=== PATIENT | male | born 1975 | race Caucasian/White ===

== ENCOUNTER 2016-10-23 21:04 | Emergency (ER) | payer OTHER ==
[2016-10-23 21:26] VITALS: BP 120/84
--- NOTE | 2016-10-23 22:10 | UC ---
Respiratory Complaint HPI - HPI Summary HPI Summary: The patient comes in today for: 1. Body aches, cough: Onset: 2 days ago. Palliative/provocative: Dayquil with questionable help. Nothing helps. Quality: Ache Region/radiation: Bilateral lower back and legs. Severity:7/10 though he appears to be more like 4/10 Time: Constant aches, but cough lasts a few seconds. Associated symptoms: Fevers: no temperature taken. Rhinitis: Green material Cough: Green material. Chest pain: None at this time. Dyspnea: None. * - History of Current Complaint Chief Complaint: UCRespiratory Stated Complaint: URI Time Seen by Provider: 10/23/16 22:05 Hx Obtained From: Patient - Allergies/Home Medications Allergies/Adverse Reactions: Allergies Allergy/AdvReac Type Severity Reaction Status Date / Time No Known Allergies Allergy Verified 02/17/16 18:13 Home Medications: Home Medications Dextromethorphan-Phenylephrine [Daytime Cold & Flu Relief 10-5-325 mg] 1 cap PO 10/23/16 [History] PMH/Surg Hx/FS Hx/Imm Hx Previously Healthy: Yes Endocrine History Of: Denies: Diabetes, Thyroid Disease, Hyperthyroidism, Hypothyroidism, Dyslipidemia Cardiovascular History Of: Denies: Cardiac Disorders, Hypertension, Pacemaker/ICD, Myocardial Infarction , Congestive Heart Failure, Atrial Fibrillation, Deep Vein Thrombosis, Bleeding Disorders Respiratory History Of: Denies: COPD, Asthma, Bronchitis, Pneumonia, Pulmonary Embolism GI/ History Of: Denies: Gastroesophageal Reflux, Ulcer, Gastrointestinal Bleed, Gall Bladder Disease, Kidney Stones, Diverticulitis, Renal Disease, Urosepsis Neurological History Of: Denies: TIA, CVA, Dementia, Seizures, Migraine Psychological History Of: Denies: Anxiety, Depression, Bipolar Disorder, Schizophrenia, Post Traumatic Stress Disorder Cancer History Of: Denies: Lung Cancer, Colorectal Cancer, Breast Cancer, Prostate Cancer, Cervical Cancer Other History Of: Negative For: HIV, Hepatitis B, Hepatitis C, Anticoagulant Therapy - Surgical History Surgical History: Yes Surgery Procedure, Year, and Place: vastectomy - Family History Known Family History: Negative: Cardiac Disease, Hypertension - Social History Occupation: Employed Full-time Lives: With Family Alcohol Use: None Substance Use Type: None Smoking Status (MU): Light Every Day Tobacco Smoker Type: Cigarettes Amount Used/How Often: 1/3 pack a day Length of Time of Smoking/Using Tobacco: 15 years Review of Systems Constitutional: Negative Skin: Negative Eyes: Negative ENT: Nasal Discharge Respiratory: Cough Cardiovascular: Negative Gastrointestinal: Negative Genitourinary: Negative All Other Systems Reviewed And Are Negative: Yes Physical Exam Triage Information Reviewed: Yes Appearance: Well-Appearing, Well-Nourished Vital Signs: Initial Vital Signs Temp 96.1 F 10/23/16 21:22 Pulse 97 10/23/16 21:22 Resp 18 10/23/16 21:22 BP 120/84 10/23/16 21:22 Pulse Ox 98 10/23/16 21:22 Vital Signs Reviewed: Yes Eyes: Positive: Conjunctiva Clear. Negative: Discharge ENT: Positive: Hearing grossly normal, Other: - Tenderness to palpation of the frontal and maxillary sinuses. Negative: Pharyngeal erythema, Nasal congestion , TM bulging, TM dull, TM red, Tonsillar swelling, Tonsillar exudate Dental: Negative: Gross Decay/Caries @, Dental Fracture @ Neck: Positive: Supple, Nontender, No Lymphadenopathy. Negative: Nuchal Rigidity Respiratory: Positive: Lungs clear, No respiratory distress, No accessory muscle use. Negative: Crackles, Wheezing Cardiovascular: Positive: RRR, No Murmur Abdomen Description: Positive: Nontender, No Organomegaly, Soft. Negative: Distended, Guarding Musculoskeletal: Positive: Strength Intact, ROM Intact Neurological: Positive: Alert, Muscle Tone Normal Psychological: Positive: Age Appropriate Behavior, Consolable Skin: Negative: rashes, breakdown UC Diagnostic Evaluation - Laboratory O2 Sat by Pulse Oximetry: 98 Respiratory Course/Dx - Differential Dx/Diagnosis Provider Diagnoses: Sinusitis. Bronchitis. Viral syndrome. Discharge - Discharge Plan Condition: Stable Disposition: HOME Patient Education Materials: Sinusitis (ED), Acute Bronchitis (ED), Viral Syndrome (ED) Referrals: No Primary Care Phys,NOPCP [Primary Care Provider] - 1 Week (Please see your primary care provider in a week to see how well you are doing. If you don't have a primary care provider, please call the physician referral phone line to help you get one. If you can't get in timely, you can see us until you do. If you get worse, please go to the local ER.) [facility] [place] [place]]
[2016-10-23] MEDS ORDERED: Naproxen TAB* 250 MG PO ONE (22:14)
[2016-10-23] MEDS ORDERED: Amoxicillin/Clavulanate TAB* 875 MG PO ONE (22:14)
== END 2016-10-23 22:25 | disposition home or self-care (01) ==
LOC: UCEAST 21:04
DX: J32.9 Chronic sinusitis, unspecified (principal); J40 Bronchitis, not specified as acute or chronic; B34.9 Viral infection, unspecified; F17.210 Nicotine dependence, cigarettes, uncomplicated
CPT/HCPCS: 99212; A9270-GY; G0463

== ENCOUNTER 2017-11-06 14:38 | Emergency (ER) | payer OTHER ==
[2017-11-06 15:04] VITALS: BP 116/77
--- NOTE | 2017-11-06 15:27 | RAD ---
HISTORY: Right knee twisting injury COMPARISONS: None VIEWS: 4, Frontal, lateral, axial, and oblique views of the right knee FINDINGS: BONE DENSITY: Normal. BONES: There is no displaced fracture. There are well-corticated bone fragments of the anterior tibial tubercle. JOINTS: There is no arthropathy. There is no suprapatellar joint effusion or lipohemarthrosis. ALIGNMENT: There is no dislocation. SOFT TISSUES: Unremarkable. OTHER FINDINGS: None. IMPRESSION: NO ACUTE OSSEOUS INJURY. 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 IF SYMPTOMS PERSIST, RECOMMEND REPEAT IMAGING.
--- NOTE | 2017-11-06 15:44 | UC ---
Knee Pain HPI - HPI Summary HPI Summary: About 1.5 weeks ago pt was walking in his driveway and R knee twisted, since then he has had medial pain. At first was swollen, now swelling improved. Continues to have pain with weight bearing, occasionally has the sensation that his joint is "coming apart" and has sharp pain with this. Does not feel comfortable pivoting or changing directions while walking. - History of Current Complaint Hx Obtained From: Patient Onset/Duration: Sudden Onset Severity Initially: Moderate Severity Currently: Mild Pain Intensity: 4 Character: Dull, Aching Aggravating Factor(s): Movement, Weight Bearing, Prolonged Standing Alleviating Factor(s): Rest Associated Signs And Symptoms: Positive: Swelling Able to Bear Weight: Yes <Eunice Mcclendon - Last Filed: 11/06/17 15:39> <Shannan Mercedes - Last Filed: 11/06/17 16:39> - History of Current Complaint Chief Complaint: UCLowerExtremity Stated Complaint: KNEE INJURY Time Seen by Provider: 11/06/17 15:17 - Allergies/Home Medications Allergies/Adverse Reactions: Allergies Allergy/AdvReac Type Severity Reaction Status Date / Time No Known Allergies Allergy Verified 11/06/17 15:04 Home Medications: Home Medications Penicillin VK TAB* [Penicillin VK 250 mg Tab*] 500 mg PO TID 11/06/17 [History Confirmed 11/06/17] PMH/Surg Hx/FS Hx/Imm Hx Previously Healthy: Yes Other History Of: Negative For: HIV, Hepatitis B, Hepatitis C, Anticoagulant Therapy - Surgical History Surgical History: Yes Surgery Procedure, Year, and Place: vastectomy - Family History Known Family History: Negative: Cardiac Disease, Hypertension - Social History Occupation: Unemployed Lives: With Family Alcohol Use: None Substance Use Type: None Smoking Status (MU): Light Every Day Tobacco Smoker Type: Cigarettes Amount Used/How Often: 1 pack every 4 days Length of Time of Smoking/Using Tobacco: 15 years Have You Smoked in the Last Year: Yes <Eunice Mcclendon - Last Filed: 11/06/17 15:39> Review of Systems Constitutional: Negative Skin: Negative Eyes: Negative ENT: Negative Respiratory: Negative Cardiovascular: Negative Gastrointestinal: Negative Genitourinary: Negative Motor: Negative Neurovascular: Negative Musculoskeletal: Arthralgia, Decreased ROM Neurological: Negative Psychological: Negative Is Patient Immunocompromised?: No All Other Systems Reviewed And Are Negative: Yes <Eunice Mcclendon - Last Filed: 11/06/17 15:39> Physical Exam Triage Information Reviewed: Yes Appearance: Well-Appearing, Well-Nourished Vital Signs: Initial Vital Signs Temp 97.8 F 11/06/17 15:00 Pulse 86 11/06/17 15:00 Resp 16 11/06/17 15:00 BP 116/77 11/06/17 15:00 Pulse Ox 99 11/06/17 15:00 Vital Signs Reviewed: Yes Eye Exam: Normal Eyes: Positive: Conjunctiva Clear ENT Exam: Normal ENT: Positive: Normal ENT inspection, Hearing grossly normal, Pharynx normal, TMs normal Respiratory Exam: Normal Respiratory: Positive: Chest non-tender, Lungs clear, Normal breath sounds, No respiratory distress, No accessory muscle use Cardiovascular Exam: Normal Cardiovascular: Positive: RRR, No Murmur Musculoskeletal Exam: Other - Pain in R knee, medial joint line; possible laxity with anterior drawer? Musculoskeletal: Positive: Strength Intact, ROM Intact Neurological Exam: Normal Neurological: Positive: Alert Psychological Exam: Normal Skin Exam: Normal <Eunice Mcclendon - Last Filed: 11/06/17 15:39> Vital Signs: Initial Vital Signs Temp 97.8 F 11/06/17 15:00 Pulse 86 11/06/17 15:00 Resp 16 11/06/17 15:00 BP 116/77 11/06/17 15:00 Pulse Ox 99 11/06/17 15:00 <Shannan Mercedes - Last Filed: 11/06/17 16:39> Diagnostics - Radiology No standard instances Xray Interpretation: No Acute Changes Radiology Interpretation Completed By: Radiologist <Eunice Mcclendon - Last Filed: 11/06/17 15:39> Knee Pain Course/Dx - Differential Dx/Diagnosis Provider Diagnoses: R knee sprain <Eunice Mcclendon - Last Filed: 11/06/17 15:39> Discharge <Eunice Mcclendon - Last Filed: 11/06/17 15:39> <Shannan Mercedes - Last Filed: 11/06/17 16:39> - Discharge Plan Condition: Stable Disposition: HOME Patient Education Materials: Knee Sprain (ED) Referrals: Chiara Phan MD [Medical Doctor] - Additional Instructions: As we discussed, your symptoms are concerning for internal ligament damage. Please see an orthopedist to discuss the possible need for further imaging. In the mean time, please try not to bear weight without the knee immobilizer. If you twist your knee again without support you could turn a small injury into a large one. You can take ibuprofen or naproxen as needed for pain. Attestation Statement User Type: Provider - I was available for consult. This patient was seen by the advanced practice provider. The patient was not presented to, seen by, or examined by me.-Celso <Shannan Mercedes - Last Filed: 11/06/17 16:39>
== END 2017-11-06 15:48 | disposition home or self-care (01) ==
LOC: UCEAST 14:38
DX: S83.91XA Sprain of unspecified site of right knee, initial encounter (principal); X50.1XXA Overexertion from prolonged static or awkward postures, initial encounter; Y93.01 Activity, walking, marching and hiking; Y92.412 Parkway as the place of occurrence of the external cause; F17.210 Nicotine dependence, cigarettes, uncomplicated
CPT/HCPCS: 99212; G0463

== ENCOUNTER 2018-08-15 14:59 | Emergency (ER) | payer OTHER ==
[2018-08-15 17:05] VITALS: BP 121/86
[2018-08-15] MEDS ORDERED: Ondansetron ODT TAB* 4 MG PO ONE (18:12)
--- NOTE | 2018-08-15 18:26 | UC ---
Abdominal Pain Male HPI - HPI Summary HPI Summary: Onset last night of nausea/vomiting and watery stools. Reports fever 101 last night. Has not been able to eat or drink much today due to the nausea. Is also complaining of a mild headache. - History of Current Complaint Chief Complaint: UCGI Stated Complaint: VOMITING Time Seen by Provider: 08/15/18 17:25 Hx Obtained From: Patient Onset/Duration: Sudden Onset, Lasting Days - 1 DAY, Still Present Timing: Constant Severity Initially: Moderate Severity Currently: Moderate Pain Intensity: 5 Pain Scale Used: 0-10 Numeric Location: Diffuse Radiates: No Character: Cramping, Sharp Aggravating Factor(s): Food Alleviating Factor(s): Nothing Associated Signs And Symptoms: Positive: Fever, Decreased Appetite, Nausea, Vomiting, Diarrhea. Negative: Diaphoresis, Urinary Symptoms - Allergies/Home Medications Allergies/Adverse Reactions: Allergies Allergy/AdvReac Type Severity Reaction Status Date / Time No Known Allergies Allergy Verified 08/15/18 17:05 Home Medications: Home Medications Acetaminophen 1,300 mg PO 08/15/18 [History] PMH/Surg Hx/FS Hx/Imm Hx Previously Healthy: Yes Other History Of: Negative For: HIV, Hepatitis B, Hepatitis C, Anticoagulant Therapy - Surgical History Surgical History: Yes Surgery Procedure, Year, and Place: vastectomy - Family History Known Family History: Negative: Cardiac Disease, Hypertension - Social History Alcohol Use: None Substance Use Type: None Smoking Status (MU): Light Every Day Tobacco Smoker Type: Cigarettes Amount Used/How Often: 1 pack every 4 days Length of Time of Smoking/Using Tobacco: 15 years Have You Smoked in the Last Year: Yes Review of Systems All Other Systems Reviewed And Are Negative: Yes Constitutional: Positive: Fever Respiratory: Positive: Negative Cardiovascular: Positive: Negative Gastrointestinal: Positive: Abdominal Pain, Vomiting, Diarrhea, Nausea Genitourinary: Positive: Negative Physical Exam Triage Information Reviewed: Yes Appearance: Well-Appearing, No Pain Distress, Well-Nourished Vital Signs: Initial Vital Signs Temp 97.4 F 08/15/18 17:02 Pulse 99 08/15/18 17:02 Resp 18 08/15/18 17:02 BP 121/86 08/15/18 17:02 Pulse Ox 98 08/15/18 17:02 Vital Signs Reviewed: Yes Eyes: Positive: Conjunctiva Clear ENT: Positive: Hearing grossly normal, Pharynx normal Neck: Positive: Supple Respiratory Exam: Normal Cardiovascular Exam: Normal Abdomen Description: Positive: Soft, Other: - DIFFUSELY TENDER BUT WORSE UPPER ABDOMEN. NO REBOUND OR RIGIDITY. Negative: CVA Tenderness (R), CVA Tenderness ( L), Distended, Guarding Abd Pain Male Course/Dx - Differential Dx/Clinical Impression Provider Diagnosis: Gastroenteritis Discharge - Sign-Out/Discharge Documenting (check all that apply): Patient Departure All imaging exams completed and their final reports reviewed: No Studies - Discharge Plan Condition: Stable Disposition: HOME Prescriptions: Ondansetron ODT TAB* [Zofran Odt TAB*] 4 mg PO Q6H PRN #20 tab.odt PRN Reason: Nausea/Vomiting Patient Education Materials: Gastroenteritis (ED) Forms: *Work Release Referrals: [facility] [Outside] - If Needed Additional Instructions: GASTROENTERITIS: You have gastroenteritis ("intestinal flu"). This disease is usually caused by a virus. There is no specific treatment. The disease will end by itself. For now, the main danger is dehydration. Give clear liquids. Examples include Pedialyte, Gatorade, clear broth, juices, flat sodas, and jello water. Medications may be prescribed by the physician for special cases. Once tolerated, the clear liquid diet may be supplemented with rice, cereal, toast, applesauce, or bananas. Call the physician or go to the hospital if vomiting increases or blood appears in the bowel movement or vomitus; if you fail to improve, or if signs of dehydration occur (tongue and mouth become dry, lethargy). ENSURE ADEQUATE HYDRATION. CLEAR LIQUIDS, BLAND DIET. AVOID CAFFEINE, DAIRY, GREASY, SPICY FOODS. ONCE YOU ARE TOLERATING CLEAR LIQUIDS YOU CAN ADVANCE TO SIMPLE, BLAND FOODS. CALL THE NUMBER BELOW FOR ASSISTANCE IN ESTABLISHING WITH A PCP An additional resource available to assist in finding the appropriate physician for your health care needs is the [facility] ([facility]). You may contact them by calling [phone]. - Billing Disposition and Condition Condition: STABLE Disposition: Home
== END 2018-08-15 18:25 | disposition home or self-care (01) ==
LOC: UCEAST 14:59
DX: K52.9 Noninfective gastroenteritis and colitis, unspecified (principal); F17.210 Nicotine dependence, cigarettes, uncomplicated
CPT/HCPCS: 99212; A9270-GY; G0463

== ENCOUNTER 2018-08-18 17:45 | Emergency (ER) | payer OTHER ==
[2018-08-18] MEDS ORDERED: Buprenorp/Nalox 8-2 MG FILM 1 EACH SL FILM ONE (18:20)
--- NOTE | 2018-08-18 18:28 | ED ---
Complex/Multi-Sys Presentation - HPI Summary HPI Summary: A 42 y/o male brought in by [facility] ambulance presents to [facility] with a chief complaint of heroine withdrawal symptoms on 08/18/18. The patient reports residing at [facility] where he has been sober for two days. He states that he forgot to bring his suboxone from home and has not had food in two days. He usually would take 1 suboxone per day. He reports N/V, abd pain, back pain, lightheadedness and weakness. He rates his pain as 5/10. - History Of Current Complaint Chief Complaint: EDGeneral Time Seen by Provider: 08/18/18 17:53 Hx Obtained From: Patient, EMS Onset/Duration: Sudden Onset, Lasting Hours, Still Present Timing: Constant Severity Currently: Moderate Severity Initially: Moderate Associated Signs And Symptoms: Positive: Weakness, Headache, Nausea, Vomiting, Abdominal Pain, Back Pain - Allergies/Home Medications Allergies/Adverse Reactions: Allergies Allergy/AdvReac Type Severity Reaction Status Date / Time No Known Allergies Allergy Verified 08/15/18 17:05 Home Medications: Home Medications Buprenorp/Nalox 8-2 MG FILM [Suboxone 8 mg-2 mg Sl Film] 1 film SL DAILY [History Confirmed 08/18/18] PMH/Surg Hx/FS Hx/Imm Hx Endocrine/Hematology History: Denies: Hx Anticoagulant Therapy, Hx Diabetes, Hx Thyroid Disease Cardiovascular History: Denies: Hx Congestive Heart Failure, Hx Deep Vein Thrombosis, Hx Hypertension , Hx Myocardial Infarction, Hx Pacemaker/ICD Respiratory History: Denies: Hx Asthma, Hx Chronic Obstructive Pulmonary Disease (COPD), Hx Lung Cancer, Hx Pneumonia, Hx Pulmonary Embolism GI History: Denies: Hx Gall Bladder Disease, Hx Gastrointestinal Bleed, Hx Ulcer, Hx Urosepsis History: Denies: Hx Kidney Stones, Hx Renal Disease Neurological History: Denies: Hx Dementia, Hx Migraine, Hx Seizures, Hx Transient Ischemic Attacks (TIA) Psychiatric History: Denies: Hx Anxiety, Hx Depression, Hx Schizophrenia, Hx Bipolar Disorder - Surgical History Surgery Procedure, Year, and Place: vastectomy Infectious Disease History: No Infectious Disease History: Denies: Hx Hepatitis, Hx Human Immunodeficiency Virus (HIV), History Other Infectious Disease, Traveled Outside the [place] in Last 30 Days - Family History Known Family History: Negative: Cardiac Disease, Hypertension - Social History Alcohol Use: None Substance Use Type: Reports: None Substance Use Comment - Amount & Last Used: recovering heroin user Smoking Status (MU): Light Every Day Tobacco Smoker Type: Cigarettes Amount Used/How Often: 1 pack every 4 days Length of Time of Smoking/Using Tobacco: 15 years Have You Smoked in the Last Year: Yes Review of Systems Positive: Abdominal Pain, Vomiting, Nausea Positive: Myalgia - back pain Neurological: Other - Positive: lightheadedness Positive: Weakness All Other Systems Reviewed And Are Negative: Yes Physical Exam - Summary Physical Exam Summary: Appearance: The patient is well-nourished in no acute distress and in no acute pain. Skin: The patient is mildly diaphoretic. HEENT: The head is normocephalic and atraumatic. The pupils are 4-5 mm. The conjunctivae are clear and without drainage. Nares are patent and without drainage. Mouth reveals moist mucous membranes and the throat is without erythema and exudate. The external ears are intact. The ear canals are patent and without drainage. The tympanic membranes are intact. Neck: The neck is supple with full range of motion and non-tender. There are no carotid bruits. There is no neck vein distension. Respiratory: Chest is non-tender. Lungs are clear to auscultation and breath sounds are symmetrical and equal. Cardiovascular: Heart is regular rate and rhythm. There is no murmur or rub auscultated. There is no peripheral edema and pulses are symmetrical and equal. Abdomen: The abdomen is soft and non-tender. There are normal bowel sounds heard in all four quadrants and there is no organomegaly palpated. Musculoskeletal: There is no back tenderness noted. Extremities are non-tender with full range of motion. There is good capillary refill. There is no peripheral edema or calf tenderness elicited. Neurological: Patient is alert and oriented to person, place and time. The patient has symmetrical motor strength in all four extremities. Cranial nerves are grossly intact. Deep tendon reflexes are symmetrical and equal in all four extremities. Psychiatric: The patient has an appropriate affect and does not exhibit any anxiety or depression. Triage Information Reviewed: Yes Vital Signs On Initial Exam: Initial Vitals Temp Pulse Resp BP Pulse Ox 99.4 F 93 22 131/86 99 08/18/18 17:49 08/18/18 17:49 08/18/18 17:49 08/18/18 17:49 08/18/18 17:49 Vital Signs Reviewed: Yes Diagnostics - Vital Signs Vital Signs Temp Pulse Resp BP Pulse Ox 08/18/18 18:13 96 20 135/89 98 08/18/18 17:49 99.4 F 93 22 131/86 99 - Laboratory Lab Statement: Any lab studies that have been ordered have been reviewed, and results considered in the medical decision making process. Re-Evaluation - Re-Evaluation First Eval Re-Evaluation Time: 20:05 Change: Improved Comment: Pt ready for discharge. Complex Multi-Symp Course/Dx Course Of Treatment: Mr. Nestor Navarro presented to the emergency department with a COWS of 17. He apparently is court mandated to care at [facility] which was outpatient until a couple days ago. He relapsed to heroin and was made inpatient. Gissel Churchill wrote a prescription for him for Suboxone for 7 days which he filled yesterday. When he went to inpatient he did not think he needed to bring his Suboxone with him. They cannot write him another prescription for 7 days. He was nontoxic in appearance here and his vitals are stable. He was given Suboxone felt much improved. His brought in his prescription Suboxone and he is going to take that back to [facility] with him. - Diagnoses Provider Diagnoses: Opiate withdrawal Discharge - Sign-Out/Discharge Documenting (check all that apply): Patient Departure - DC - Discharge Plan Condition: Stable Disposition: HOME Patient Education Materials: Opioid Withdrawal (ED) Referrals: Maira Churchill, SATURATOR OPERATOR [Nurse Practitioner] - (2-3 days) Additional Instructions: Follow up with Maira Churchill at [facility]. Return to the ED if you experience any new or worsening symptoms. - Billing Disposition and Condition Condition: STABLE Disposition: Home - Attestation Statements Document Initiated by Doniibe: Yes Documenting Scribe: Jamie Lacey Provider For Whom Isaak is Documenting (Include Credential): Jigar Cadena MD Scribe Attestation: I, Jamie Lacey, scribed for Jigar Cadena MD on 08/18/18 at 2049. Scribe Documentation Reviewed: Yes Provider Attestation: The documentation as recorded by the Jamie mason accurately reflects the service I personally performed and the decisions made by me, Jigar Cadena MD Status of Scribe Document: Viewed
[2018-08-18] MEDS ORDERED: Ondansetron ODT TAB* 4 MG PO ONE (18:51)
[2018-08-18 20:27] VITALS: BP 126/93
== END 2018-08-18 20:26 | disposition home or self-care (01) ==
LOC: ED 17:45
DX: F11.23 Opioid dependence with withdrawal (principal); F17.210 Nicotine dependence, cigarettes, uncomplicated
CPT/HCPCS: 36415; 86703; 99283; A9270-GY

== ENCOUNTER 2018-08-18 23:41 | Emergency (ER) | payer OTHER ==
[2018-08-18 23:45] VITALS: BP 131/101
== END 2018-08-19 00:02 | disposition left against medical advice (07) ==
LOC: ED 23:41
DX: F11.90 Opioid use, unspecified, uncomplicated (principal); Z53.21 Procedure and treatment not carried out due to patient leaving prior to being seen by health care provider